=== PATIENT | female | born 1995 | race Two or more races ===

== ENCOUNTER 2017-03-09 00:43 | Emergency (ER) | payer MEDICAID ==
[~2017-03-09] VITALS: Ht 157.5 cm; Wt 81.6 kg
[2017-03-09 00:45] VITALS: BP 119/93
[2017-03-09] MEDS ORDERED: KETOROLAC TROMETH 60MG/2ML VIAL IM ONE (02:45)
== END 2017-03-09 03:55 | disposition home or self-care (01) ==
LOC: EDBD 00:43 → ER 00:50
DX: S80.01XA Contusion of right knee, initial encounter (principal); G89.29 Other chronic pain; V43.62XA Car passenger injured in collision with other type car in traffic accident, initial encounter; Y93.89 Activity, other specified; Y92.89 Other specified places as the place of occurrence of the external cause; Y99.8 Other external cause status
CPT/HCPCS: 29505; 73562; 96372; 99284; J1885